=== PATIENT | female | born 1970 | race Caucasian/White ===

== ENCOUNTER → 2016-07-19 | Outpatient (REF) | LOC: ZLAB.WCH 07:40 | DX: Z01.89 Encounter for other specified special examinations (principal) ==

== ENCOUNTER → 2016-08-17 | Outpatient (CLI) | payer BC | LOC: MC.RAD 07-31 13:40 | DX: Z12.31 Encounter for screening mammogram for malignant neoplasm of breast (principal) ==

== ENCOUNTER → 2017-07-17 | Outpatient (REF) | LOC: ZLAB.WCH 18:38 | DX: Z01.89 Encounter for other specified special examinations (principal) ==